=== PATIENT | female | born 1940 | race African-American/Black ===

== ENCOUNTER 2022-02-08 16:53 | Emergency (ER) | payer BC, OTHER ==
[~2022-02-08] VITALS: Ht 170.2 cm; Wt 82.0 kg
[~2022-02-08 16:53] MED LIST: AMLO10TA80 PO; CHOL20004 PO; LEVO25TA7 PO
[2022-02-08] MEDS ORDERED: KETOROLAC 30MG/ML VIAL IV ONE (19:00)
[2022-02-08] MEDS ORDERED: ACETAMINOPHEN 325MG TABLET PO ONE (19:00)
[2022-02-08] MEDS ORDERED: LIDO1ADH23 TP (19:54)
[2022-02-08] MEDS ORDERED: IBUP-2028 MT (19:54)
[2022-02-08] MEDS ORDERED: TOPUD PO (19:54)
[2022-02-08] MEDS ORDERED: METH-653 MT (19:54)
[2022-02-08 20:16] VITALS: BP 171/82
== END 2022-02-08 20:15 | disposition home or self-care (01) ==
LOC: ER 16:53
DX: S22.22XA Fracture of body of sternum, initial encounter for closed fracture (principal); I10 Essential (primary) hypertension; V53.5XXA Driver of pick-up truck or van injured in collision with car, pick-up truck or van in traffic accident, initial encounter; Y93.89 Activity, other specified; Y92.410 Unspecified street and highway as the place of occurrence of the external cause; Z85.9 Personal history of malignant neoplasm, unspecified
CPT/HCPCS: 71045; 71120; 93005; 96374; 99284; J1885

== ENCOUNTER 2024-08-24 08:34 | Emergency (ER) | payer OTHER ==
[~2024-08-24] VITALS: Ht 170.2 cm; Wt 73.0 kg
[~2024-08-24 08:34] MED LIST changes: +IBUP-2028 MT; +LIDO1ADH23 TP; +METH-653 MT; +TOPUD PO
[2024-08-24 08:50] VITALS: O2SAT 99
[2024-08-24] MEDS: LIDOCAINE HCL 1% 20ML VIAL INFIL ONE (11:16)
[2024-08-24] MEDS ORDERED: IBUP-2028 MT (12:37)
[2024-08-24 12:45] VITALS: BP 129/65; PULSE 74; RESP 14; TEMP 36.8; O2SAT 99
== END 2024-08-24 12:50 | disposition home or self-care (01) ==
LOC: ER 08:34
DX: S52.121A Displaced fracture of head of right radius, initial encounter for closed fracture (principal); S52.601A Unspecified fracture of lower end of right ulna, initial encounter for closed fracture; I10 Essential (primary) hypertension; E03.9 Hypothyroidism, unspecified; X58.XXXA Exposure to other specified factors, initial encounter; Y93.89 Activity, other specified; Y92.89 Other specified places as the place of occurrence of the external cause; Y99.8 Other external cause status
CPT/HCPCS: 25605; 73100; 73120; 99284; J3490; A6449; 99285